=== PATIENT | male | born 1970 | race African-American/Black ===

== ENCOUNTER 2017-05-03 01:11 | Emergency (ER) | payer OTHER ==
[~2017-05-03] VITALS: Ht 175.3 cm; Wt 85.1 kg
[~2017-05-03 01:11] MED LIST: ANUSOL-HC21 GM PR; COLACE100 MG PO; CYCLOBENZAPRINE10 MG PO; ENDOCET 5-3251 EACH PO; HYDROCHLOROTHIA25 MG PO; MIRALAX17 GM PO; MORPHINE SULFAT15 M1 PO; MOTRIN600 MG PO; NAPROSYN500 MG PO; PERCOCET 10/1 TABLET PO; TORADOL10 MG PO; TRAMADOL HCL50 MG PO; VICODIN,LORT1 TABLET PO; ZOFRAN4 MG PO
[2017-05-03 02:28] LABS: HEMATOCRIT 40.5 % (38.0-50.0); MCH 31.4 PG (29.0-34.0); MCHC 34.8 G/DL (30.0-36.0); MCV 90.2 FL (86-99); MEAN PLAT.VOLUME 9.4 uM^3 (9.0-12.4); PLATELET COUNT 219 K/uL (156-360); RBC DIS.WIDTH-CV 12.4 % (11.8-14.6); RBC DIS.WIDTH-SD 41.2 % (39-53); RED BLOOD COUNT 4.49 M/uL (4.00-5.50); WHITE BLOOD COUNT 12.2 K/uL (4.1-10.2)
[2017-05-03 02:38] LABS: CHLORIDE 108 mEq/L (99-109); POTASSIUM 3.8 mEq/L (3.7-5.4); SODIUM 139 mEq/L (136-147)
[2017-05-03 02:40] LABS: GLUCOSE 99 mg/dL (70-99)
[2017-05-03 02:41] LABS: ANION GAP 13 MEQ/L (2-14)
[2017-05-03 02:43] LABS: GFR ESTIMATE (CALCULATED) 56 mL/min/; SERUM ETHYL ALCOHOL < 10 mg/dL
[2017-05-03 02:45] LABS: UREA NITROGEN (BUN) 18 mg/dL (9-23)
[2017-05-03 02:47] LABS: SALICYLATE < 5.0 MG/DL (15-30)
[2017-05-03 04:34] VITALS: BP 147/87
== END 2017-05-03 04:39 | disposition home or self-care (01) ==
LOC: EME 01:11
PROVIDERS: Emergency Medicine
DX: F19.10 Other psychoactive substance abuse, uncomplicated (principal); E86.0 Dehydration; S96.911A Strain of unspecified muscle and tendon at ankle and foot level, right foot, initial encounter; S80.01XA Contusion of right knee, initial encounter; S60.512A Abrasion of left hand, initial encounter; W19.XXXA Unspecified fall, initial encounter; Y92.410 Unspecified street and highway as the place of occurrence of the external cause; I10 Essential (primary) hypertension; F17.200 Nicotine dependence, unspecified, uncomplicated
CPT/HCPCS: 70450; 71010; 73130; 73564; 73610; 80048; 85027; 93005; G0480; J1885

== ENCOUNTER 2017-06-03 13:48 | Emergency (ER) | payer OTHER ==
[~2017-06-03] VITALS: Ht 175.3 cm; Wt 86.4 kg
[2017-06-03] MEDS ORDERED: KEFLEX500 MG PO (15:59)
[2017-06-03 16:25] VITALS: BP 142/88
== END 2017-06-03 16:26 | disposition home or self-care (01) ==
LOC: EME 13:48
DX: L03.115 Cellulitis of right lower limb (principal)
CPT/HCPCS: 99281; 99283

== ENCOUNTER 2017-10-14 19:09 | Emergency (ER) | payer OTHER ==
[~2017-10-14] VITALS: Ht 175.3 cm; Wt 86.3 kg
[~2017-10-14 19:09] MED LIST changes: +KEFLEX500 MG PO
[2017-10-14 22:43] VITALS: BP 98/69
== END 2017-10-14 23:00 | disposition home or self-care (01) ==
LOC: EME 19:09
DX: S50.02XA Contusion of left elbow, initial encounter (principal); S50.312A Abrasion of left elbow, initial encounter; M79.672 Pain in left foot; M79.671 Pain in right foot; F17.200 Nicotine dependence, unspecified, uncomplicated
CPT/HCPCS: 73080; 99281; 99283

== ENCOUNTER 2017-10-19 08:47 | Emergency (ER) | payer OTHER ==
[~2017-10-19] VITALS: Ht 175.3 cm; Wt 94.0 kg
[2017-10-19] MEDS ORDERED: EFFEXOR25 MG PO (09:02)
[2017-10-19] MEDS ORDERED: PROZAC10 MG PO (09:02)
[2017-10-19 10:17] VITALS: BP 112/76
== END 2017-10-19 10:18 | disposition home or self-care (01) ==
LOC: EME 08:47
DX: G40.909 Epilepsy, unspecified, not intractable, without status epilepticus (principal); S90.812A Abrasion, left foot, initial encounter; S60.512A Abrasion of left hand, initial encounter; S60.511A Abrasion of right hand, initial encounter; S90.415A Abrasion, left lesser toe(s), initial encounter; X58.XXXA Exposure to other specified factors, initial encounter; F17.200 Nicotine dependence, unspecified, uncomplicated
CPT/HCPCS: 99281; 99285

== ENCOUNTER 2018-01-28 10:04 | Emergency (ER) | payer OTHER ==
[~2018-01-28] VITALS: Ht 175.3 cm; Wt 87.6 kg
[~2018-01-28 10:04] MED LIST changes: +EFFEXOR25 MG PO; +PROZAC10 MG PO
[2018-01-28 10:44] LABS: HEMATOCRIT 45.4 % (38.0-50.0); HEMOGLOBIN 15.3 G/DL (12.5-16.6); MCH 31.7 PG (29.0-34.0); MCHC 33.7 G/DL (30.0-36.0); PLATELET COUNT 300 K/uL (156-360); RBC DIS.WIDTH-CV 12.5 % (11.8-14.6); RBC DIS.WIDTH-SD 43.1 % (39-53); RED BLOOD COUNT 4.83 M/uL (4.00-5.50)
[2018-01-28 11:21] LABS: CHLORIDE 103 mEq/L (99-109); POTASSIUM 4.5 mEq/L (3.7-5.4); SODIUM 136 mEq/L (136-147)
[2018-01-28 11:23] LABS: GLUCOSE 97 mg/dL (70-99)
[2018-01-28 11:27] LABS: CREATININE 1.2 mg/dL (0.6-1.3); GFR ESTIMATE (CALCULATED) > 59 mL/min/ (58.99-99999)
[2018-01-28 11:28] LABS: UREA NITROGEN (BUN) 12 mg/dL (9-23)
[2018-01-28] MEDS ORDERED: ATIVAN2 MG PO (11:45)
[2018-01-28 13:01] VITALS: BP 145/88
== END 2018-01-28 13:03 | disposition home or self-care (01) ==
LOC: EME 10:04
PROVIDERS: Emergency Medicine Emergency Medical Services
DX: R41.82 Altered mental status, unspecified (principal); F41.0 Panic disorder [episodic paroxysmal anxiety]; R56.9 Unspecified convulsions; S60.222A Contusion of left hand, initial encounter; S60.221A Contusion of right hand, initial encounter; S60.212A Contusion of left wrist, initial encounter; S60.211A Contusion of right wrist, initial encounter; S80.12XA Contusion of left lower leg, initial encounter; S80.11XA Contusion of right lower leg, initial encounter; S00.03XA Contusion of scalp, initial encounter; W10.1XXA Fall (on)(from) sidewalk curb, initial encounter; Y93.89 Activity, other specified; Y92.480 Sidewalk as the place of occurrence of the external cause; I10 Essential (primary) hypertension; F32.9 Major depressive disorder, single episode, unspecified; F17.200 Nicotine dependence, unspecified, uncomplicated
CPT/HCPCS: 70450; 80048; 82948; 85027; 93005; 99281; 99285; J7040